=== PATIENT | male | born 1945 | race Caucasian/White ===

== ENCOUNTER → 2017-05-14 | Outpatient (CLI) | payer MEDICARE ==
[~2017-05-14] MED LIST: ASPIRIN81 M1 PO; AUGMENTIN XR 101 TER PO; CIPRODEX 0.3%-7.5 ML OT; CLARITIN10 MG PO; COMBIVENT1 ARO IH; COUMADIN7.5 M1 PO; NORVASC5 MG PO; TRICOR145 MG PO
[2017-05-14 08:34] LABS: BASO % 0.6 % (0.0-1.0); HEMATOCRIT 40.5 % (42.0-52.0); HEMOGLOBIN 13.5 g/dl (14.0-18.0); LYMPH % 21.7 % (27.0-41.0); MEAN CELL VOLUME 90.6 fl (80.0-94.0); MEAN CORPUSCULAR HGB 30.2 pg (27.0-31.0); MEAN CORPUSCULAR HGB CONC 33.3 g/dl (33.0-37.0); MEAN PLATELET VOLUME 11.7 fl (9.6-12.3); MONO # 0.3 10*3/uL (0.1-1.0); MONO % 5.5 % (3.0-9.0); NEUT # 3.4 10*3/uL (2.3-7.9); PLATELET COUNT AUTOMATED 139 10*3/uL (130-400); RED BLOOD COUNT 4.47 10*6/uL (4.50-5.90); RED CELL DISTRI WIDTH 14.2 % (0-14.5); WHITE BLOOD COUNT 4.8 10*3/uL (4.8-10.8)
[2017-05-14 09:02] LABS: ALBUMIN 3.6 gm/dl (3.1-4.5); BUN 21 mg/dl (7-24); CHLORIDE 105 mmol/L (98-107); CHOLESTEROL 181 mg/dL (<200); HDL CHOLESTEROL 24 mg/dl (40-60); SGOT/AST 39 IU/L (3-35); SGPT/ALT 55 U/L (12-78); SODIUM 139 mmol/L (136-145)
[2017-05-14 09:12] LABS: ALKALINE PHOSPHATASE 55 U/L (45-117); CREATININE 1.26 mg/dL (0.70-1.30); LDL CHOLESTEROL 96 mg/dL (9-159); TOTAL PROTEIN 8.5 gm/dL (6.4-8.2); TRIGLYCERIDES 303 mg/dl (<150); VLDL CHOLESTEROL 61 mg/dL (6-40)
[2017-05-16 00:02] LABS: TESTOSTERONE FREE, (DIRECT) 4.3 pg/mL (6.6-18.1)
== END | disposition home or self-care (01) ==
LOC: LAB 05-13 14:35
PROVIDERS: Internal Medicine
DX: Z12.5 Encounter for screening for malignant neoplasm of prostate (principal); E11.9 Type 2 diabetes mellitus without complications; E78.2 Mixed hyperlipidemia; N52.2 Drug-induced erectile dysfunction

== ENCOUNTER → 2019-11-23 | Outpatient (CLI) | payer MEDICARE | END | disposition home or self-care (01) | LOC: RAD 14:11 | PROVIDERS: ATTEND Internal Medicine Cardiovascular Disease | DX: R09.89 Other specified symptoms and signs involving the circulatory and respiratory systems (principal) ==

== ENCOUNTER 2021-03-25 10:47 | Inpatient (IN) | payer MEDICARE ==
[~2021-03-25] VITALS: Ht 175.2 cm; Wt 81.6 kg
[~2021-03-25 10:47] MED LIST changes: +IRBESARTAN300 M1 PO; +LORAZEPAM0.5 MG PO; +Lopressor25 MG PO; +REVLIMID25 MG PO; +TRIAMTERENE-HC1 EACH PO
[2021-03-25 11:06] VITALS: BP 151/48
[2021-03-25 11:49] LABS: HEMATOCRIT 24.2 % (42.0-52.0); MEAN CELL VOLUME 88.3 fl (80.0-94.0); MEAN CORPUSCULAR HGB 28.8 pg (27.0-31.0); MEAN CORPUSCULAR HGB CONC 32.6 g/dl (33.0-37.0); MEAN PLATELET VOLUME 14.3 fl (9.6-12.3); PLATELET COUNT AUTOMATED 49 10*3/uL (130-400); RED BLOOD COUNT 2.74 10*6/uL (4.50-5.90); RED CELL DISTRI WIDTH 14.3 % (0-14.5)
[2021-03-25 11:52] LABS: WHITE BLOOD COUNT 0.9 10*3/uL (4.8-10.8)
[2021-03-25 12:08] LABS: ALBUMIN 1.9 gm/dl (3.1-4.5); CREATININE 2.3 mg/dL (0.70-1.30); POTASSIUM 3.5 mmol/L (3.5-5.1); TOTAL PROTEIN 5.9 gm/dL (6.4-8.2)
[2021-03-25 12:13] LABS: BASOPHILS 4 % (0-1); OVALOCYTES FEW; PLATELET SUFFICIENCY LOW (NORMAL); TOTAL CELLS COUNTED 100 #CELLS
[2021-03-25 13:05] VITALS: BP 152/75
[2021-03-25] MEDS ORDERED: GRANIX SQ (14:20)
[2021-03-28] MEDS ORDERED: FENOFIBRATE145 M1 PO (10:54)
== END 2021-03-25 15:20 | disposition home or self-care (01) | DRG 177 ==
LOC: ED 10:47 → EDHOLD 11:20
PROVIDERS: Emergency Medicine; ADMIT Internal Medicine; ATTEND Internal Medicine
DX: U07.1 COVID-19 (principal); J12.82 Pneumonia due to coronavirus disease 2019; E43 Unspecified severe protein-calorie malnutrition; N17.0 Acute kidney failure with tubular necrosis; D61.818 Other pancytopenia; C90.00 Multiple myeloma not having achieved remission; N18.4 Chronic kidney disease, stage 4 (severe); I48.20 Chronic atrial fibrillation, unspecified; D70.9 Neutropenia, unspecified; R73.9 Hyperglycemia, unspecified; Z87.891 Personal history of nicotine dependence; Z79.899 Other long term (current) drug therapy; Z80.1 Family history of malignant neoplasm of trachea, bronchus and lung

== ENCOUNTER → 2021-03-28 | Outpatient (CLI) | payer MEDICARE ==
[~2021-03-28] MED LIST changes: +FENOFIBRATE145 M1 PO; +GRANIX SQ
[2021-03-28 10:55] VITALS: BP 124/61
== END | disposition home or self-care (01) ==
LOC: INJECTION 01:41
PROVIDERS: ATTEND Internal Medicine
DX: C90.00 Multiple myeloma not having achieved remission (principal); D61.818 Other pancytopenia; I10 Essential (primary) hypertension; M19.90 Unspecified osteoarthritis, unspecified site; Z91.040 Latex allergy status; Z91.018 Allergy to other foods; Z87.891 Personal history of nicotine dependence; Z98.890 Other specified postprocedural states

== ENCOUNTER → 2021-08-10 | Outpatient (CLI) | payer MEDICARE | END | disposition home or self-care (01) | LOC: US 00:11 | PROVIDERS: ATTEND Internal Medicine Nephrology | DX: C90.00 Multiple myeloma not having achieved remission (principal); Z86.718 Personal history of other venous thrombosis and embolism ==

== ENCOUNTER 2021-10-18 13:36 | Emergency (ER) | payer MEDICARE ==
[~2021-10-18] VITALS: Wt 78.9 kg
== END 2021-10-18 17:19 | disposition left against medical advice (07) ==
LOC: ED 13:36
DX: S01.81XA Laceration without foreign body of other part of head, initial encounter (principal); Z79.899 Other long term (current) drug therapy; Z90.89 Acquired absence of other organs; Z87.891 Personal history of nicotine dependence; W18.39XA Other fall on same level, initial encounter; Y93.89 Activity, other specified; Y92.89 Other specified places as the place of occurrence of the external cause; Y99.8 Other external cause status

== ENCOUNTER → 2022-08-27 | Outpatient (CLI) | payer MEDICARE ==
[2022-08-27 11:41] LABS: POTASSIUM 5.1 mmol/L (3.4-5.1)
== END | disposition home or self-care (01) ==
LOC: LAB 10:41
PROVIDERS: ATTEND Nurse Practitioner Family
DX: Z51.11 Encounter for antineoplastic chemotherapy (principal); C90.00 Multiple myeloma not having achieved remission; K74.60 Unspecified cirrhosis of liver; D47.2 Monoclonal gammopathy; R00.1 Bradycardia, unspecified; R63.0 Anorexia

== ENCOUNTER → 2022-12-19 | Outpatient (CLI) | payer MEDICARE ==
[2022-12-19 14:43] LABS: BASO % 0.6 % (0.0-1.0); LYMPH # 0.4 10*3/uL (1.3-4.4); LYMPH % 10.1 % (27.0-41.0); MEAN CELL VOLUME 89.1 fl (80.0-94.0); MEAN CORPUSCULAR HGB 29.6 pg (27.0-31.0); MEAN CORPUSCULAR HGB CONC 33.2 g/dl (33.0-37.0); MEAN PLATELET VOLUME 11.2 fl (9.6-12.3); MONO # 0.4 10*3/uL (0.1-1.0); MONO % 10.3 % (3.0-9.0); NEUT # 2.7 10*3/uL (2.3-7.9); NEUT % 78.7 % (47.0-73.0); PLATELET COUNT AUTOMATED 90 10*3/uL (130-400); RED BLOOD COUNT 3.48 10*6/uL (4.50-5.90); RED CELL DISTRI WIDTH 14.4 % (0-14.5); WHITE BLOOD COUNT 3.5 10*3/uL (4.8-10.8)
[2022-12-19 15:04] LABS: POTASSIUM 3.9 mmol/L (3.4-5.1); TOTAL PROTEIN 7.1 gm/dL (6.0-8.0)
[2022-12-20 15:07] LABS: A/G RATIO 1.2 (0.7-1.7); ALBUMIN 3.6 g/dL (2.9-4.4); ALPHA-1-GLOBULIN 0.2 g/dL (0.0-0.4); ALPHA-2-GLOBULIN 0.8 g/dL (0.4-1.0); BETA GLOBULIN 0.9 g/dL (0.7-1.3); FREE KAPPA LIGHT CHAINS 437.2 mg/L (3.3-19.4); FREE LAMBDA LIGHT CHAINS 34.7 mg/L (5.7-26.3); GAMMA GLOBULIN 1.2 g/dL (0.4-1.8); GLOBULIN, TOTAL 3.1 g/dL (2.2-3.9); IMMUNOGLOBULIN G, QNT 1100 mg/dL (603-1613); IMMUNOGLOBULIN M, QNT 80 mg/dL (15-143); M-SPIKE 0.6 g/dL (Not Observed); TOTAL PROTEIN, SERUM 6.7 g/dL (6.0-8.5)
[2022-12-21 09:07] LABS: BETA-2 MICROGLOBULIN 6.3 mg/L (0.6-2.4)
== END | disposition home or self-care (01) ==
LOC: LAB 14:15
PROVIDERS: ATTEND Internal Medicine Hematology & Oncology
DX: Z51.11 Encounter for antineoplastic chemotherapy (principal); D47.2 Monoclonal gammopathy; C90.00 Multiple myeloma not having achieved remission; R00.1 Bradycardia, unspecified; R63.0 Anorexia; F40.240 Claustrophobia; K74.60 Unspecified cirrhosis of liver

== ENCOUNTER → 2023-11-10 | Outpatient (CLI) | payer MEDICARE ==
[~2023-11-10] MED LIST changes: +ATIVAN0.5 MG PO; +CEFDINIR300 MG PO; +DILTIAZEM HCL120 M2 PO; +ELIQUIS5 M1 PO; +HYDR25T PO; +LASIX20 MG PO; +METOPROLOL SUCC50 M1 PO; +NORVASC10 MG PO; +TOPROL XL25 MG PO
[2023-11-10 15:20] LABS: BILIRUBIN Negative (Negative); BLOOD Negative (Negative); CLARITY Clear (Clear); COLOR Yellow (Yellow); GLUCOSE Negative (Negative); KETONE Negative (Negative); LEUKO ESTERASE Negative (Negative); NITRITE Negative (Negative); UROBILINOGEN 0.2 E.U./dl (0.0-1.0)
[2023-11-10 15:25] LABS: HEMATOCRIT 30.7 % (42.0-52.0); LYMPH # 0.3 10*3/uL (1.3-4.4); LYMPH % 8.6 % (27.0-41.0); MEAN CELL VOLUME 87.7 fl (80.0-94.0); MEAN CORPUSCULAR HGB 28.3 pg (27.0-31.0); MEAN CORPUSCULAR HGB CONC 32.2 g/dl (33.0-37.0); MEAN PLATELET VOLUME 10.3 fl (9.6-12.3); MONO # 0.3 10*3/uL (0.1-1.0); MONO % 7.4 % (3.0-9.0); NEUT # 2.8 10*3/uL (2.3-7.9); NEUT % 83.7 % (47.0-73.0); PLATELET COUNT AUTOMATED 89 10*3/uL (130-400); RED CELL DISTRI WIDTH 17.3 % (0-14.5); WHITE BLOOD COUNT 3.4 10*3/uL (4.8-10.8)
[2023-11-10 15:27] LABS: URINE CREATININE RANDOM 52.49 mg/dL
[2023-11-10 15:33] LABS: BACTERIA TRACE; RBC 0-2 rbc/hpf (0-2)
[2023-11-10 15:39] LABS: POTASSIUM 4.3 mmol/L (3.4-5.1)
[2023-11-10 16:18] LABS: VITAMIN D, 25-HYDROXY 21.1 ng/mL (30-100)
== END | disposition home or self-care (01) ==
LOC: LAB 14:48
PROVIDERS: ATTEND Internal Medicine Nephrology
DX: N18.30 Chronic kidney disease, stage 3 unspecified (principal); N25.81 Secondary hyperparathyroidism of renal origin; D63.1 Anemia in chronic kidney disease

== ENCOUNTER → 2024-05-19 | Outpatient (CLI) | payer MEDICARE ==
[2024-05-19 14:05] LABS: MEAN CELL VOLUME 85.2 fl (80.0-94.0); MEAN CORPUSCULAR HGB 26.6 pg (27.0-31.0); MEAN CORPUSCULAR HGB CONC 31.3 g/dl (33.0-37.0); PLATELET COUNT AUTOMATED 92 10*3/uL (130-400); RED BLOOD COUNT 3.64 10*6/uL (4.50-5.90); RED CELL DISTRI WIDTH 16.4 % (0-14.5); WHITE BLOOD COUNT 5.9 10*3/uL (4.8-10.8)
[2024-05-19 14:05] LABS: BILIRUBIN Negative (Negative); BLOOD Negative (Negative); CLARITY Clear (Clear); COLOR Yellow (Yellow); GLUCOSE Negative (Negative); KETONE Negative (Negative); LEUKO ESTERASE Negative (Negative); NITRITE Negative (Negative); PH 5.5 (4.5-8.0); SPECIFIC GRAVITY 1.015 (1.001-1.030); UROBILINOGEN 0.2 E.U./dl (0.0-1.0)
[2024-05-19 14:09] LABS: MANUAL DIFF REFLEX YES
[2024-05-19 14:19] LABS: BACTERIA TRACE; RBC 0-2 rbc/hpf (0-2); WBC 0-2 wbc/hpf (0-5)
[2024-05-19 14:20] LABS: HYALINE CAST 0-2; MUCOUS 1+
[2024-05-19 14:30] LABS: POTASSIUM 3.7 mmol/L (3.4-5.1)
[2024-05-19 14:31] LABS: VITAMIN D, 25-HYDROXY 22.5 ng/mL (30-100)
[2024-05-19 14:35] LABS: PLATELET SUFFICIENCY LOW (NORMAL); TOTAL CELLS COUNTED 100 #CELLS
[2024-05-19 14:36] LABS: OVALOCYTES FEW
== END | disposition home or self-care (01) ==
LOC: LAB 13:38
PROVIDERS: ATTEND Internal Medicine Nephrology
DX: N25.81 Secondary hyperparathyroidism of renal origin (principal); N18.30 Chronic kidney disease, stage 3 unspecified; D63.1 Anemia in chronic kidney disease

== ENCOUNTER 2025-01-14 11:56 | Emergency (ER) | payer MEDICARE ==
[~2025-01-14] VITALS: Ht 175.2 cm; Wt 72.6 kg
[2025-01-14 12:49] LABS: BASO # 0.0 10*3/uL (0.0-0.1); BASO % 0.4 % (0.0-1.0); EOS # 0.0 10*3/uL (0.0-0.4); EOS % 0.0 % (1.0-4.0); MEAN CELL VOLUME 90.8 fl (80.0-94.0); MEAN CORPUSCULAR HGB 27.7 pg (27.0-31.0); MEAN PLATELET VOLUME 12.4 fl (9.6-12.3); MONO # 0.3 10*3/uL (0.1-1.0); MONO % 5.9 % (3.0-9.0); NEUT # 4.5 10*3/uL (2.3-7.9); NEUT % 86.9 % (47.0-73.0); NUCLEATED RED BLOOD CELL 0.0 % (0.0-0.0); NUCLEATED RED BLOOD CELL 0.0 10*3/uL (0.0-0.0); PLATELET COUNT AUTOMATED 88 10*3/uL (130-400); RED CELL DISTRI WIDTH 15.7 % (0-14.5)
[2025-01-14 13:09] LABS: BUN 47.0 mg/dl (9-23)
== END 2025-01-14 14:07 | disposition home or self-care (01) ==
LOC: ED 11:56
PROVIDERS: Emergency Medicine
DX: E87.5 Hyperkalemia (principal); I12.9 Hypertensive chronic kidney disease with stage 1 through stage 4 chronic kidney disease, or unspecified chronic kidney disease; N18.9 Chronic kidney disease, unspecified; F41.9 Anxiety disorder, unspecified; I48.91 Unspecified atrial fibrillation; M19.90 Unspecified osteoarthritis, unspecified site; Z87.891 Personal history of nicotine dependence; Z90.89 Acquired absence of other organs; Z86.718 Personal history of other venous thrombosis and embolism

== ENCOUNTER → 2025-01-17 | Outpatient (CLI) | payer MEDICARE ==
[2025-01-17 13:32] LABS: BASO # 0.0 10*3/uL (0.0-0.1); BASO % 0.2 % (0.0-1.0); EOS # 0.0 10*3/uL (0.0-0.4); EOS % 0.0 % (1.0-4.0); MEAN CELL VOLUME 89.3 fl (80.0-94.0); MEAN CORPUSCULAR HGB 27.6 pg (27.0-31.0); MEAN PLATELET VOLUME 12.2 fl (9.6-12.3); MONO # 0.3 10*3/uL (0.1-1.0); MONO % 5.8 % (3.0-9.0); NEUT # 4.2 10*3/uL (2.3-7.9); NEUT % 88.2 % (47.0-73.0); NUCLEATED RED BLOOD CELL 0.0 % (0.0-0.0); NUCLEATED RED BLOOD CELL 0.0 10*3/uL (0.0-0.0); PLATELET COUNT AUTOMATED 81 10*3/uL (130-400); RED CELL DISTRI WIDTH 15.5 % (0-14.5)
[2025-01-17 13:34] LABS: BILIRUBIN Negative (Negative); BLOOD 1+ (Negative); CLARITY Clear (Clear); COLOR Yellow (Yellow); KETONE Negative (Negative); LEUKO ESTERASE Negative (Negative); NITRITE Negative (Negative); PH 6.0 (4.5-8.0); SPECIFIC GRAVITY 1.015 (1.001-1.030); UROBILINOGEN 0.2 E.U./dl (0.0-1.0)
[2025-01-17 13:56] LABS: BUN 53.0 mg/dl (9-23)
[2025-01-17 14:09] LABS: VITAMIN D, 25-HYDROXY 16.9 ng/mL (30-100)
[2025-01-17 14:19] LABS: BACTERIA TRACE
== END | disposition home or self-care (01) ==
LOC: LAB 12:59
PROVIDERS: ATTEND Internal Medicine Nephrology
DX: N25.81 Secondary hyperparathyroidism of renal origin (principal); D63.1 Anemia in chronic kidney disease; N18.30 Chronic kidney disease, stage 3 unspecified